=== PATIENT | male | born 1965 | race Caucasian/White ===

== ENCOUNTER 2018-04-04 20:09 | Inpatient (IN) | payer OTHER ==
[2018-04-04] MEDS ORDERED: ACETAMINOPHEN 325 MG TAB PO (21:30)
[2018-04-04] MEDS ORDERED: BISACODYL (EC) 5 MG TAB PO (21:30)
[2018-04-04] MEDS ORDERED: NACL 0.9% 3 ML SYG IV (21:30)
[2018-04-04] MEDS ORDERED: ONDANSETRON 4 MG TAB PO (21:30)
[2018-04-04] MEDS ORDERED: DOCUSATE SODIUM 100 MG CAP PO (21:30)
[2018-04-04] MEDS ORDERED: VANCOMYCIN IV PER PHARMACY XX (21:30)
[2018-04-04 22:57] LABS: ADD MAN DIFF? NO
[2018-04-04 23:01] LABS: WHITE BLOOD COUNT 7.9 10^3/ul (4.8-10.8)
[2018-04-04 23:01] LABS: BASOPHIL # 0.1 10^3/ul (0.0-0.1); BASOPHILS % 0.8 % (0.0-2.0); EOSINOPHILS # 0.4 10^3/ul (0.0-0.5); EOSINOPHILS % 4.8 % (0.0-7.0); HEMATOCRIT 40.4 % (42.0-52.0); HEMOGLOBIN 13.2 g/dl (14.0-18.0); LYMPHOCYTES % 25.7 % (15.0-51.0); MEAN CORPUSCULAR HEMOGLOBIN 29.7 pg (29.0-33.0); MEAN CORPUSCULAR HGB CONC 32.7 g/dl (32.0-37.0); MONOCYTE # 1.1 10^3/ul (0.3-0.9); MONOCYTES % 13.9 % (0.0-11.0); NEUTROPHIL # 4.3 10^3/ul (1.6-7.5); NEUTROPHILS % 54.3 % (39.0-77.0); PLATELET COUNT 214 10^3/UL (140-415); RED BLOOD COUNT 4.44 10^6/ul (4.70-6.10); RED CELL DISTRIBUTION WIDTH 12.9 % (11.5-14.5)
[2018-04-04 23:17] LABS: HEMOGLOBIN A1C 5.3 % (0-5.9)
[2018-04-04 23:22] LABS: LACTIC ACID 1.2 mmol/L (0.5-2.0)
[2018-04-04 23:24] LABS: ALANINE AMINOTRANSFERASE 17 IU/L (13-69); ALBUMIN 4.1 g/dl (3.3-4.9); ALBUMIN/GLOBULIN RATIO 0.95; ALKALINE PHOSPHATASE 87 IU/L (42-121); ANION GAP 7 (5-13); ASPARTATE AMINO TRANSFERASE 40 IU/L (15-46); BLOOD UREA NITROGEN 17 mg/dl (7-20); CALCIUM 9.4 mg/dl (8.4-10.2); CARBON DIOXIDE 29 mmol/L (21-31); CHLORIDE 99 mmol/L (97-110); CHOL/HDL RATIO 4.1 RATIO; CHOLESTEROL 163 mg/dl (100-200); CREATININE 0.68 mg/dl (0.61-1.24); Estimated GFR > 60 mL/min (>60); GLUCOSE 93 mg/dl (70-220); HDL CHOLESTEROL 39 mg/dl (28-71); LDL CHOLESTEROL,CALCULATED 94 mg/dl; POTASSIUM 4.8 mmol/L (3.5-5.1); SODIUM 135 mmol/L (135-144); TOTAL PROTEIN 8.4 g/dl (6.1-8.1); TRIGLYCERIDES 148 mg/dl (0-149)
[2018-04-04] MEDS: CEFAZOLIN 2 GM/50 ML (PMX) 50 ML IVPB (23:24)
[2018-04-04] MEDS: HYDROCODONE/APAP (5/325) TAB PO (23:24)
[2018-04-05 00:09] LABS: ERYTHROCYTE SEDIMENTATION RATE 36 mm/Hr (0-20)
[2018-04-05] MEDS: VANCOMYCIN HCL 1.25 GM in SOD CHLORIDE 0.9% 250 ML IVPB ×3 (00:21→23:06)
[2018-04-05] MEDS: CEFAZOLIN 2 GM/50 ML (PMX) 50 ML IVPB ×3 (05:51→21:49)
[2018-04-05] MEDS ORDERED: HYDROCODONE/APAP (5/325) TAB PO (09:00)
[2018-04-05] MEDS: NICOTINE (14 MG/24 HR) PATCH TRANSDERM (09:06)
[2018-04-05] MEDS: SERTRALINE 50 MG TAB PO (09:06)
[2018-04-05] MEDS ORDERED: NICOTINE (14 MG/24 HR) PATCH TRANSDERM (10:00)
[2018-04-05] MEDS: HYDROCODONE/APAP (5/325) TAB PO ×2 (11:09→21:52)
[2018-04-05] MEDS: INFLUENZA VIRUS VACCINE 0.5 ML (DISPENSING) IM* (11:20)
[2018-04-05] MEDS: ARIPIPRAZOLE 5 MG TAB PO (18:45)
[2018-04-05] MEDS ORDERED: ARIPIPRAZOLE 5 MG TAB PO (21:00)
[2018-04-05] MEDS: traZODone 100 MG TAB PO (21:49)
[2018-04-06] MEDS: CEFAZOLIN 2 GM/50 ML (PMX) 50 ML IVPB ×3 (05:24→23:02)
[2018-04-06] MEDS: SERTRALINE 50 MG TAB PO (08:08)
[2018-04-06] MEDS: ARIPIPRAZOLE 5 MG TAB PO (08:08)
[2018-04-06] MEDS: NICOTINE (14 MG/24 HR) PATCH TRANSDERM (08:08)
[2018-04-06] MEDS ORDERED: LORAZEPAM 2 MG INJ (10:34)
[2018-04-06] MEDS: LORAZEPAM 2 MG INJ IV (10:40)
[2018-04-06 11:09] LABS: VANCOMYCIN,TROUGH 12.8 ug/ml (10.0-20.0)
[2018-04-06] MEDS: HYDROCODONE/APAP (5/325) TAB PO (11:42)
[2018-04-06] MEDS: VANCOMYCIN HCL 1.25 GM in SOD CHLORIDE 0.9% 250 ML IVPB ×2 (11:42→23:31)
[2018-04-06 14:55] LABS: C-REACTIVE PROTEIN 0.8 mg/dl (0.0-0.9)
[2018-04-06] MEDS: traZODone 100 MG TAB PO (21:22)
[2018-04-07] MEDS: CEFAZOLIN 2 GM/50 ML (PMX) 50 ML IVPB ×3 (05:52→21:56)
[2018-04-07 07:35] LABS: BLOOD UREA NITROGEN 16 mg/dl (7-20)
[2018-04-07 07:35] LABS: CREATININE 0.78 mg/dl (0.61-1.24)
[2018-04-07] MEDS: HYDROCODONE/APAP (5/325) TAB PO ×2 (07:50→18:12)
[2018-04-07] MEDS: ARIPIPRAZOLE 5 MG TAB PO (09:08)
[2018-04-07] MEDS: SERTRALINE 50 MG TAB PO (09:08)
[2018-04-07] MEDS: NICOTINE (14 MG/24 HR) PATCH TRANSDERM (09:08)
[2018-04-07] MEDS: VANCOMYCIN HCL 1.25 GM in SOD CHLORIDE 0.9% 250 ML IVPB ×2 (11:18→23:14)
[2018-04-07] MEDS: KETOCONAZOLE 2% 15 GM CR TOP (20:23)
[2018-04-07] MEDS: traZODone 100 MG TAB PO (20:23)
[2018-04-08] MEDS: CEFAZOLIN 2 GM/50 ML (PMX) 50 ML IVPB ×2 (05:50→15:08)
[2018-04-08 07:15] LABS: ANION GAP 10 (5-13); BLOOD UREA NITROGEN 15 mg/dl (7-20); CALCIUM 9.6 mg/dl (8.4-10.2); CARBON DIOXIDE 26 mmol/L (21-31); CHLORIDE 103 mmol/L (97-110); CREATININE 0.68 mg/dl (0.61-1.24); Estimated GFR > 60 mL/min (>60); GLUCOSE 95 mg/dl (70-220); POTASSIUM 4.5 mmol/L (3.5-5.1); SODIUM 139 mmol/L (135-144)
[2018-04-08 07:55] LABS: HIV 1&2 ANTIBODY NEGATIVE (NEGATIVE)
[2018-04-08] MEDS: NICOTINE (14 MG/24 HR) PATCH TRANSDERM (08:41)
[2018-04-08] MEDS: ARIPIPRAZOLE 5 MG TAB PO (08:41)
[2018-04-08] MEDS: SERTRALINE 50 MG TAB PO (08:41)
[2018-04-08] MEDS: KETOCONAZOLE 2% 15 GM CR TOP ×2 (08:41→20:51)
[2018-04-08] MEDS: VANCOMYCIN HCL 1.25 GM in SOD CHLORIDE 0.9% 250 ML IVPB ×2 (11:01→23:06)
[2018-04-08] MEDS: HYDROCODONE/APAP (5/325) TAB PO ×2 (14:02→20:56)
[2018-04-08] MEDS: traZODone 100 MG TAB PO (20:46)
[2018-04-08] MEDS: CEFTRIAXONE 2 GM/NS 50 ML IVPB (20:49)
[2018-04-09] MEDS: HYDROCODONE/APAP (5/325) TAB PO ×3 (05:18→21:59)
[2018-04-09 08:03] LABS: BLOOD UREA NITROGEN 15 mg/dl (7-20)
[2018-04-09] MEDS: ARIPIPRAZOLE 5 MG TAB PO (10:03)
[2018-04-09] MEDS: NICOTINE (14 MG/24 HR) PATCH TRANSDERM (10:03)
[2018-04-09] MEDS: SERTRALINE 50 MG TAB PO (10:03)
[2018-04-09] MEDS: KETOCONAZOLE 2% 15 GM CR TOP ×2 (10:04→22:00)
[2018-04-09 10:52] LABS: VANCOMYCIN,TROUGH 13.7 ug/ml (10.0-20.0)
[2018-04-09] MEDS: VANCOMYCIN HCL 1.25 GM in SOD CHLORIDE 0.9% 250 ML IVPB ×2 (12:03→23:09)
[2018-04-09] MEDS: CEFTRIAXONE 2 GM/NS 50 ML IVPB (21:59)
[2018-04-09] MEDS: traZODone 100 MG TAB PO (21:59)
[2018-04-10] MEDS: SERTRALINE 50 MG TAB PO (09:21)
[2018-04-10] MEDS: ARIPIPRAZOLE 5 MG TAB PO (09:22)
[2018-04-10] MEDS: NICOTINE (14 MG/24 HR) PATCH TRANSDERM (09:22)
[2018-04-10] MEDS: KETOCONAZOLE 2% 15 GM CR TOP ×2 (09:24→20:36)
[2018-04-10] MEDS: VANCOMYCIN HCL 1.25 GM in SOD CHLORIDE 0.9% 250 ML IVPB ×2 (12:01→22:30)
[2018-04-10] MEDS: HYDROCODONE/APAP (5/325) TAB PO ×2 (14:29→20:30)
[2018-04-10] MEDS: traZODone 100 MG TAB PO (20:30)
[2018-04-10] MEDS: CEFTRIAXONE 2 GM/NS 50 ML IVPB (20:34)
[2018-04-11] MEDS: HYDROCODONE/APAP (5/325) TAB PO ×2 (08:59→20:02)
[2018-04-11] MEDS: SERTRALINE 50 MG TAB PO (09:01)
[2018-04-11] MEDS: ARIPIPRAZOLE 5 MG TAB PO (09:01)
[2018-04-11] MEDS: NICOTINE (14 MG/24 HR) PATCH TRANSDERM (09:02)
[2018-04-11] MEDS: KETOCONAZOLE 2% 15 GM CR TOP ×2 (09:03→20:02)
[2018-04-11] MEDS: VANCOMYCIN HCL 1.25 GM in SOD CHLORIDE 0.9% 250 ML IVPB ×2 (10:19→23:31)
[2018-04-11] MEDS: traZODone 100 MG TAB PO (20:02)
[2018-04-11] MEDS: CEFTRIAXONE 2 GM/NS 50 ML IVPB (21:01)
[2018-04-12 07:41] LABS: CREATININE 0.76 mg/dl (0.61-1.24)
[2018-04-12 07:41] LABS: BLOOD UREA NITROGEN 16 mg/dl (7-20)
[2018-04-12] MEDS: SERTRALINE 50 MG TAB PO (08:13)
[2018-04-12] MEDS: ARIPIPRAZOLE 5 MG TAB PO (08:13)
[2018-04-12] MEDS: KETOCONAZOLE 2% 15 GM CR TOP ×2 (08:14→21:04)
[2018-04-12] MEDS: NICOTINE (14 MG/24 HR) PATCH TRANSDERM (08:14)
[2018-04-12] MEDS: VANCOMYCIN HCL 1.25 GM in SOD CHLORIDE 0.9% 250 ML IVPB ×2 (12:05→23:49)
[2018-04-12] MEDS: HYDROCODONE/APAP (5/325) TAB PO ×2 (13:31→21:06)
[2018-04-12] MEDS: CEFTRIAXONE 2 GM/NS 50 ML IVPB (21:04)
[2018-04-12] MEDS: traZODone 100 MG TAB PO (21:05)
[2018-04-12 22:39] LABS: VANCOMYCIN,TROUGH 16.5 ug/ml (10.0-20.0)
[2018-04-13] MEDS: LIDOCAINE 1% (MPF) 5 ML VIAL SC ×2 (08:54→08:55)
[2018-04-13] MEDS: NICOTINE (14 MG/24 HR) PATCH TRANSDERM (09:31)
[2018-04-13] MEDS: ARIPIPRAZOLE 5 MG TAB PO (09:32)
[2018-04-13] MEDS: SERTRALINE 50 MG TAB PO (09:32)
[2018-04-13] MEDS: KETOCONAZOLE 2% 15 GM CR TOP ×2 (09:32→19:53)
[2018-04-13] MEDS: HYDROCODONE/APAP (5/325) TAB PO ×2 (09:32→19:53)
[2018-04-13] MEDS: VANCOMYCIN HCL 1.25 GM in SOD CHLORIDE 0.9% 250 ML IVPB ×2 (11:48→19:53)
[2018-04-13] MEDS: traZODone 100 MG TAB PO (19:53)
[2018-04-13] MEDS: CEFTRIAXONE 2 GM/NS 50 ML IVPB (23:13)
[2018-04-14] MEDS: VANCOMYCIN HCL 1.25 GM in SOD CHLORIDE 0.9% 250 ML IVPB (08:17)
[2018-04-14] MEDS: HYDROCODONE/APAP (5/325) TAB PO (08:23)
[2018-04-14] MEDS: SERTRALINE 50 MG TAB PO (08:23)
[2018-04-14] MEDS: ARIPIPRAZOLE 5 MG TAB PO (08:23)
[2018-04-14] MEDS: NICOTINE (14 MG/24 HR) PATCH TRANSDERM (09:32)
[2018-04-14] MEDS: KETOCONAZOLE 2% 15 GM CR TOP (09:33)
== END 2018-04-14 14:00 | disposition home health service (06) | DRG 540 ==
LOC: 5EC 20:09
PROC: 02HV33Z Insertion of Infusion Device into Superior Vena Cava, Percutaneous Approach (ICD-10-PCS; principal; 2018-04-10)
DX: M86.8X8 Other osteomyelitis, other site (principal); M00.9 Pyogenic arthritis, unspecified; F25.9 Schizoaffective disorder, unspecified; F15.90 Other stimulant use, unspecified, uncomplicated; S46.322D Laceration of muscle, fascia and tendon of triceps, left arm, subsequent encounter; B99.9 Unspecified infectious disease; Z72.0 Tobacco use
CPT/HCPCS: 36569; 71045; 73080-LT; 73221; 76937; 80048; 80053; 80061; 80202; 82565; 83036; 83605; 83735; 84443; 84520; 85025; 85651; 86140; 86703; 87040; 90686